=== PATIENT | female | born 1975 | race Caucasian/White ===

== ENCOUNTER 2024-12-23 14:49 | Inpatient (IN) | payer MEDICAID, SELFPAY ==
--- OUTSIDE RECORDS SUMMARY | 2024-12-23 14:57 | XMS_ITS | Clinical Summary ---
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
[2024-12-23 15:42] VITALS: BMI 19.8
[2024-12-23 16:03] VITALS: BP 122/73; PULSE 80; RESP 16; TEMP 36.1; O2SAT 100
--- NOTE | 2024-12-23 17:04 | PC.ADMIT ---
Pt is a 49 year old female who arrived to on a CV at 15:30 from a hospital in the [facility] for the treatment of depression and SI. Per crisis report pt recently attempted suicide - pt stating she is here now not specifying if she's regretful or not. States she feels safe on the unit. Pt has attempted ~10 times to end her life since a young age. Precipitants of her depression include a divorce ~1 year ago. Ever since the divorce pt has only been sleeping 4 hours daily. She denies current SI/HI/AH/VH. She states she has been with a low this since she was 13. Pt is reporting 4/10 for depression and 5/10 for anxiety. Utox (+) for cocaine and cocaine use reported on crisis report from the other hospital however pt denied all substance use to t/w. Pt very guarded upon arrival to the unit, tearful at times, stated I've never been to a place like this before. I haven't even been to the hospital in 20 years. I'm healthy. I don't take any medications. Skin check completed with no significant findings.
--- NOTE | 2024-12-23 19:52 | HO.PM.IMCN ---
History of Present Illness Data of Consult Service Date: 12/23/24 Requesting physician: Mimi Castelan Primary Care Provider: None Physician HPI Reason for consult: admission HPI Patient is a 49-year-old female with past medical history depression, multiple suicide attempts, insomnia, substance use disorder, tobacco dependence, dental extractions, inguinal hernia repair at 6 months of age is being seen on M5 status post admission for suicidal ideations to review medical needs. Psychiatric provider present for interview. Patient states she has no current medical concerns at this time. Patient denies history of diabetes, hypertension, HIV or hepatitis. Patient denies any known liver problems related to her alcohol use. Patient states she has been under a current weight since 9th grade. Patient's past medical and surgical history reviewed with patient and exam completed. Patient cooperative with care. Review of Systems Review of Systems: Patient denies any chest pain, shortness of breath at rest or with exertion, nausea or vomiting. Patient is not having issues with constipation or diarrhea. Patient sleeps 4-5 hours per night. Patient denies any recent falls or traumas. Patient denies history of IV drug abuse but has history of cocaine use. Patient's smokes about a pack per day. Patient does drink alcohol 3-4 winds every other day. Patient denies history of withdrawal. Yes all other systems are reviewed and are negative PMFSH Medical History Insomnia Alcohol use Substance use disorder Tobacco dependence Cognitive capacity: Alert and orientated x3 Functional capacity: independent ambulation Surgical History [place] teeth extracted H/O inguinal hernia repair Social History Household Members: None Do you presently have visiting nurse or other home services: No Patient Tobacco Use Status: Current everyday Tobacco user Tobacco use type: Cigarette Smoked in Last 30 Days: Yes e-Cigarette/Vaping Use: Never Used Patient Interested in Nicotine Replacement: No Patient Given Instructions on How to Stop Smoking: No (pt declined) Second Hand Smoke Exposure: No Currently Displaying Signs/Symptoms of Drug Intoxication Withdrawal: No Have you been hit, kicked, punched, or otherwise hurt by someone within the past year? If so, by whom?: No Do you feel safe in your current relationship?: No Is there a partner from a previous relationship who is making you feel unsafe now?: No Are you made to feel afraid or neglected: No Spiritual Healthcare Practices: none Pentecostal Healthcare Practices: none Cultural Healthcare Practices: none Advance Directives: No Advance Directives Information Provided: Yes Do you have thoughts of harming others: None Do you have a plan to hurt others: No Plan Recently lost weight without trying: No How much weight loss: Not applicable Eating poorly because of decreased appetite: No Nutrition screen score: 0 Nutrition Risks: No Nutritional Risk Patient : No : No Poor oral hygiene: No Ebola Risk: Travel/Contact With Anyone From Affected Area/s: No Has Patient Experienced Ebola Symptoms: No Meds Allergies Allergy/AdvReac Type Severity Reaction Status Date / Time No Known Allergies Allergy Verified 12/23/24 15:41 Active Medications: Current Medications Acetaminophen (Acetaminophen 325 Mg Tablet) 650 mg PO Q6H PRN PRN Reason: Headache/Pain, Scale 1-10 Al Hydroxide/Mg Hydroxide (Magnesium Hydrox/Alum Hydrox 30 Ml Oral.Susp) 30 ml PO Q6H PRN PRN Reason: Heartburn/Nausea Hydroxyzine HCl (Hydroxyzine Hcl 25 Mg Tablet) 25 mg PO Q6H PRN PRN Reason: mild anxiety Magnesium Hydroxide (Milk Of Magnesia 30 Ml Oral.Susp) 30 ml PO DAILY PRN PRN Reason: Constipation Melatonin (Melatonin 3 Mg Tablet) 6 mg PO BEDTIME NICHOLAS Nicotine (Nicotine 21 Mg Patch.Td24) 21 mg TRANSDERMA DAILY PRN PRN Reason: nicotine craving Nicotine Polacrilex (Nicotine Polacrilex 2 Mg Gum) 2 mg BUCCAL Q2H PRN PRN Reason: Nicotine Cravings Olanzapine (Olanzapine 5 Mg Tablet) 5 mg PO BID PRN PRN Reason: agitation Trazodone HCl (Trazodone Hcl 50 Mg Tablet) 50 mg PO BEDTIME MRX1 PRN PRN Reason: Insomnia Physical Exam Vital Signs and Narrative: Vital Signs: Last Vital Signs Temp 96.9 F 12/23/24 16:03 Pulse 80 12/23/24 16:03 Resp 16 12/23/24 16:03 BP 122/73 12/23/24 16:03 Pulse Ox 100 12/23/24 16:03 O2 Del Method Room Air 12/23/24 16:03 BMI result Body Mass Index 19.8 Alert and orientated X3, able to give good history. Neuro: CN II-X11 intact, no deficits, visual acuity intact EYES: PERRLA, EOM intact, sclerae nonicteric, conjunctiva pink ENT: hearing intact, no issues with swallowing, uvula midline, lips moist, nares patent no epistaxis, no current issues with dental caries or abscess Cardiac: S1 S2 RRR, no murmur, no JVD, no edema in Lower ext Pulmonary: lungs clear to auscultation B Abdominal: BS active in all 4 quadrants, no guarding, tenderness, rebounding MSK: strength 5/5 upper and lower extremities : no CVA tenderness no bladder distension Extremities: no edema in lower extremities, PT and DP pulses palpable +2 Psych: mood stable, judgement and insight good Skin: Intact, no rashes or lesions noted Results ECG Prior ECG tracings: not available for review Assessment and Plan (1) Tobacco dependence: Status: Acute Plan Patient is a 49-year-old female with past medical history depression, multiple suicide attempts, insomnia, substance use disorder, tobacco dependence, dental extractions, inguinal hernia repair at 6 months of age is being seen on in 5 status post admission for suicidal ideations to review medical needs. Patient states she has no current medical concerns at this time. Patient denies history of diabetes, hypertension, HIV or hepatitis. Patient denies any known liver problems related to her alcohol use. Patient states she has been in her current weight since 9th grade. Tobacco dependence Nicotine patch and nicotine gum ordered by Psychiatry Alcohol use disorder No issues with withdrawal in the past Do not suspect need for CIWA or withdrawal issues Insomnia Management per Psychiatry Patient offers no specific medical concerns at this time. Hospitalist group will sign off. Thank you for this consultation. Please reach out with any questions or concerns.
[2024-12-23 20:00] VITALS: BP 144/75; PULSE 60; RESP 16; TEMP 36.1; O2SAT 100
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
--- NOTE | 2024-12-24 00:39 | PC.NURSE ---
Pt refused HS Melatonin 6mg at 2100. She later requested Melatonin 9mg and Trazodone 50mg for insomnia @ 0030. She states I can't sleep .
[2024-12-24 08:00] VITALS: BP 114/55; PULSE 60; RESP 16; TEMP 35.6; O2SAT 99
[2024-12-24 09:07] LABS: Alanine Aminotransferase 22 U/L (0-31); Albumin Level 4.4 g/dL (3.5-5.0); Alkaline Phosphatase 66 U/L (39-117); Anion Gap 12 (12-20); Aspartate Amino Transferase 26 U/L (5-31); Blood Urea Nitrogen 8 mg/dL (9-16); Calcium 9.5 mg/dL (8.4-10.2); Carbon Dioxide 29 mmol/L (22-29); Chloride 104 mmol/L (96-108); Cholesterol 184 mg/dL (<200); Creatinine Clr Calc Pharmacy 69.2; Estimated Glomerular Filt Rate > 60; HDL Cholesterol 71 mg/dL (>40); Potassium 4.2 mmol/L (3.3-5.1); Sodium 141 mmol/L (135-145); Total Protein 6.9 g/dL (6.5-8.0); Triglycerides 121 mg/dL (<150)
[2024-12-24 09:11] LABS: Hemoglobin A1C 117.5642 umol/L; Total Hemoglobin (HGBA1C) 3945.5502 umol/L
[2024-12-24 09:56] LABS: Free T4 (Free Thyroxine) 0.81 ng/dL (0.71-1.85); Thyroid Stimulating Hormone 2.49 uIU/mL (0.32-4.0)
[2024-12-24] MEDS: Carbamide Peroxide 6.5% Otic 15 ML DRPBTL 5 DROP EAR-LEFT (12:44)
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
[2024-12-24 20:00] VITALS: BP 120/61; PULSE 68; RESP 16; TEMP 36.4; O2SAT 99
[2024-12-25 08:00] VITALS: BP 130/70; PULSE 61; RESP 16; TEMP 36.1; O2SAT 98
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
[2024-12-25 19:45] VITALS: BP 119/67; PULSE 65; RESP 16; TEMP 35.6; O2SAT 100
[2024-12-26 07:57] VITALS: BP 132/58; PULSE 108; TEMP 36.2; O2SAT 100
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
[2024-12-26 20:00] VITALS: BP 139/72; PULSE 68; RESP 16; TEMP 35.9; O2SAT 99
[2024-12-27 08:00] VITALS: BP 124/55; PULSE 57; RESP 16; TEMP 35.7; O2SAT 98
--- NOTE | 2024-12-27 09:48 | HO.PM.IMPN ---
Subjective Subjective Date of Service: 12/27/24 Interval History: Patient is reporting decreased hearing in left ear. Patient had her ears flushed two days ago after debrox treatment. Still reports her ear feels blocked. No fever, vitals are stable. No pain in ear, no drainage. No pain in pinna or tragus. Patient denies inserting anything into her ear. Reports that she cleans her ears but does not place anything inside including Qtips Review of Systems Denies any shortness of breath, chest pain, dizziness, lightheadedness, abdominal pain or discomfort, nausea vomiting or diarrhea Physical Exam Exam: Exam: CONST: Alert and oriented, in NAD. Well nourished HEENT: Normocephalic, atraumatic, MMM, Eyes clear, Neck supple. Left eardrum not visible due to impacted wax. No redness or drainage noted RESP: Lungs clear, RRR even and regular HEART:,RRR, S1, S2. No edema GI:Abdomen Soft NT, ND. + BS times four :Deferred SKIN: Warm dry and intact, no visible lesions or rashes NEURO:CN II-XII Intact bilaterally, Sensation intact. Speech clear PSYCH: Normal affect Vital Signs: Vital Signs: Last Vital Signs Temp 96.2 F L 12/27/24 08:00 Pulse 57 12/27/24 08:00 Resp 16 12/27/24 08:00 BP 124/55 L 12/27/24 08:00 Pulse Ox 98 12/27/24 08:00 O2 Del Method Room Air 12/26/24 20:00 BMI result Body Mass Index 19.8 Objective Data Active Medications Acetaminophen (Acetaminophen 325 Mg Tablet) 650 mg PO Q6H PRN PRN Reason: Headache/Pain, Scale 1-10 Al Hydroxide/Mg Hydroxide (Magnesium Hydrox/Alum Hydrox 30 Ml Oral.Susp) 30 ml PO Q6H PRN PRN Reason: Heartburn/Nausea Escitalopram Oxalate (Escitalopram Oxalate 10 Mg Tablet) 10 mg PO DAILY [facility] Last Admin: 12/27/24 09:44 Dose: 10 mg Documented By: NICOLIM Hydroxyzine HCl (Hydroxyzine Hcl 25 Mg Tablet) 25 mg PO Q6H PRN PRN Reason: mild anxiety Magnesium Hydroxide (Milk Of Magnesia 30 Ml Oral.Susp) 30 ml PO DAILY PRN PRN Reason: Constipation Melatonin (Melatonin 3 Mg Tablet) 6 mg PO BEDTIME [facility] Last Admin: 12/26/24 22:45 Dose: 6 mg Documented By: MICHAEL Nicotine (Nicotine 21 Mg Patch.Td24) 21 mg TRANSDERMA DAILY PRN PRN Reason: nicotine craving Nicotine Polacrilex (Nicotine Polacrilex 2 Mg Gum) 2 mg BUCCAL Q2H PRN PRN Reason: Nicotine Cravings Olanzapine (Olanzapine 5 Mg Tablet) 5 mg PO BID PRN PRN Reason: agitation Last Admin: 12/26/24 23:48 Dose: 5 mg Documented By: MICHAEL Trazodone HCl (Trazodone Hcl 50 Mg Tablet) 50 mg PO BEDTIME MRX1 PRN PRN Reason: Insomnia Last Admin: 12/25/24 21:03 Dose: 50 mg Documented By: MICHAEL Labs 12/24/24 08:15 Assessment and Plan (1) Cerumen impaction: Status: Acute Plan Patient is a 49-year-old female with past medical history depression, multiple suicide attempts, insomnia, substance use disorder, tobacco dependence, dental extractions, inguinal hernia repair at 6 months of age is being seen on M5 status post admission for suicidal ideations. Cerumen impaction SP ear Debrox and flushing two days ago. Still with ear wax obscuring eardrum Will need outpatient audiology. Tobacco dependence Nicotine patch and nicotine gum ordered by Psychiatry Alcohol use disorder/Insomnia/Depression/DI Treatment per psych team. Quality Stroke Does the patient have a stroke diagnosis?: No VTE Prior VTE?: No VTE Risk Level:: Medical - low VTE Device Contraindication: Treatment Not Indicated VTE Drug Contraindication: Treatment Not Indicated
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
--- NOTE | 2024-12-27 13:16 | MHC.AUDCO ---
Attended patient on the floor at request of Katia Dow who shared that Tawnya had been getting debrox drops in her left ear due to a full occlusion of cerumen. Upon otoscopic examination, I confirmed the total occlusion. At this time drops should continue 2x/day. Keeping them in the left ear for @10-15 at a time to continue to soften the wax. A curette may be used to remove the wax with sufficient softening. Another solution to use would be hydrogen peroxide. I will return to the floor tomorrow with a curette to see if I can remove some of the wax at that time. Suction is also an option if Tawnya will tolerate it. Mason Fortune.
[2024-12-27 19:31] VITALS: BP 129/68; PULSE 67; RESP 16; TEMP 36.3; O2SAT 100
[2024-12-27] MEDS: traZODone HCL 25 MG HALFTAB 75 MG PO (22:24)
[2024-12-27] MEDS: Carbamide Peroxide 6.5% Otic 15 ML DRPBTL 5 DROP EAR-BOTH (22:25)
[2024-12-28] MEDS: Carbamide Peroxide 6.5% Otic 15 ML DRPBTL 5 DROP EAR-BOTH ×2 (07:53→22:23)
[2024-12-28 07:59] VITALS: BP 128/64; PULSE 63; RESP 16; TEMP 35.6; O2SAT 100
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
--- NOTE | 2024-12-28 11:33 | MHC.AUDCO ---
Attended patient on the floor to follow up on occluding cerumen left ear following continued use of wax softening ear drops as recommended by Jael Mccray With the use of headlamp and lighted curette, significant cerumen removed from left ear canal without complication. All soft cerumen was removed and a harder wall of visually occluding cerumen remained deep in canal, which could not be removed with curette at this time. Tawnya tolerated the procedure well. Discussed continued use of wax softening drops with Tawnya and the attending nurse to soften the remaining cerumen. Advised that an procurement intern will return tomorrow morning, 12/29, to check on the occlusion and attempt to remove any remaining softened cerumen. Mason Prieto., [facility]
[2024-12-28 17:14] VITALS: BP 152/80
[2024-12-28 20:00] VITALS: BP 92/53; PULSE 59; TEMP 36.2; O2SAT 100
[2024-12-28] MEDS: traZODone HCL 25 MG HALFTAB 75 MG PO ×2 (22:21→23:39)
[2024-12-28 22:25] VITALS: BP 127/60; PULSE 65; TEMP 36; O2SAT 98
[2024-12-29 08:00] VITALS: BP 109/61; PULSE 68; RESP 16; TEMP 36.1; O2SAT 99
[2024-12-29] MEDS: Carbamide Peroxide 6.5% Otic 15 ML DRPBTL 5 DROP EAR-BOTH (08:32)
--- NOTE | 2024-12-29 08:33 | MHC.AUDCO ---
Attended patient on the floor to follow up on occluding cerumen, left ear, after use of more wax softening drops. Reattempted cerumen removal with the use of a lighted curette. Although some cerumen was removed from left ear canal without complication, a wall of visually occluding, hard cerumen still remains deep in canal, which could still not be removed with curette. Tawnya reported she is getting discharged today. Recommended continuing the use of wax softening drops and following up with PCP to complete cerumen removal.
[2024-12-29 11:21] VITALS: BP 122/76
--- NOTE | 2025-01-23 17:05 | PM.PSYDC ---
DS: Providers Provider Date of Service: 12/29/24 Date of admission: 12/23/24 14:49 Date of discharge: 12/29/24 Primary care physician: Jeffrey Physician Admitting clinician: Mimi Castelan Attending physician on admission: Ananda Sebastian Consults: 12/23/24 17:12 Consult to Hospitalist Routine Comment: Consulting Provider: [facility] Hospital[facility] Reason For Exam: New external admit- H&P 12/26/24 15:28 Consult to Hospitalist Routine Comment: Consulting Provider: [facility] Reason For Exam: L Ear-unable to hear, debrox ineffective, ?debris Attending physician on discharge: Ananda Sebastian Discharging clinician: Katia Dow DS: Diagnosis Discharge Diagnosis (1) Alcohol use: Status: Acute (2) Insomnia: Status: Resolved (3) Anxiety and depression: Status: Acute (4) Cocaine use disorder: Status: Acute DS: Medications Discharge Medications Home Medications: Previous Rx's ?Medication ?Instructions ?Recorded escitalopram oxalate 10 mg tablet 10 mg PO DAILY #30 tabs 12/28/24 clonidine HCl 0.1 mg tablet 0.1 mg PO BID PRN anxiety #60 tabs 12/29/24 trazodone 100 mg tablet 100 mg PO BEDTIME PRN sleep #30 12/29/24 tabs Mental Status Exam Mental Status Exam Patient Appearance: Appropriate Patient Orientation: Person, Place, Time and Situation Level of Consciousness: Alert Patient Behavior: Talkative and Good Eye Contact Mood Description: Apprehensive Affect Description: Apprehensive Patient Cognition Impaired: No Ability to Follow Directions: Good Speech Pattern: Spontaneous Speech Memory Description: Intact Hallucinations: None Delusions: Not Present Thought Process: Rumination Thought Content: positive for Circumstantial, positive for Perseveration and positive for Suicidal Ideation (denies) Depressive Symptoms: Thoughts of /Suicide (denies) Judgement: Good DS: Summary Hospital Course Hospital Course: Admission to adult psychiatry for exacerbation of recurrent major depression, SI, alcohol and cocaine use disorder. Recent SA and SIBS and a long history of chronic SI pt reports. Medications were evaluated and adjusted. Pt was offered full milieu to strengthen coping skills. Pt will return to out pt therapist and PHP upon discharge Status at Discharge Functional status at discharge: independent ambulation Overall status at discharge: patient is progressing back to baseline Time Spent with Patient Time attestation: Total time managing care of this patient today ____ minutes. Time spent: Less than 30 minutes Discharge Plan Discharge Anticipated Discharge Date/Time: 12/29/24 12:00 Patient Disposition: Home, Self-Care Discharge Diagnosis: Major Depression Alcohol Abuse Cocaine Abuse Referrals: Taylor Ca (OP therapist/Intake) [Other] - 12/30/24 11:00 am Referral Note: [facility] Approximately 1 hr and 30 minute appointment *You will receive a link via email the day of this appointment *You qualify for medication management with in 30 days. Partial Hospital Program [Other] - 01/02/25 9:30 am Referral Note: In-Person Appointments Physician,None [Primary Care Provider, Medical] - 1 Week Discharge Medications: New escitalopram oxalate 10 mg Tablet 10 mg PO DAILY Qty: 30 0RF clonidine HCl 0.1 mg Tablet 0.1 mg PO BID PRN (Reason: anxiety) Qty: 60 0RF Protocol: Hold for SBP< HOLD for SBP < : 90 trazodone 100 mg tablet 100 mg PO BEDTIME PRN (Reason: sleep) Qty: 30 0RF Discharge Orders: Discharge Order (Routine); Ordered 12/29/24 Ordered By: Katia Dow Diet: Advance to usual diet Activity on Discharge: As tolerated Stand Alone Forms: Patient Portal Discharge page Print Language: Czech Care Plan Goals: Mood and Behavioral Stabilization Abstinence from Substances Health Concerns: Mood and Behavioral Stabilization Abstinence from Substances Plan of Treatment: Attend scheduled appointments Take medications as directed Assessment: Pt agrees with plan of care. No SI,HI,AH, VH. No sx of acute psychosis or enedelia Discharge Date/Time: 12/29/24 11:35
== END 2024-12-29 11:35 | disposition home or self-care (01) | DRG 756 ==
PROVIDERS: Nurse Practitioner Psychiatric/Mental Health; Admitting Provider Psychiatry & Neurology Psychiatry; Visit Provider Clinical Nurse Specialist Psychiatric/Mental Health, Adult
DX: F41.9 Anxiety disorder, unspecified (principal); F10.90 Alcohol use, unspecified, uncomplicated; F17.210 Nicotine dependence, cigarettes, uncomplicated; Z71.6 Tobacco abuse counseling; G47.00 Insomnia, unspecified; F14.10 Cocaine abuse, uncomplicated; Z91.51 Personal history of suicidal behavior; Z79.899 Other long term (current) drug therapy
CPT/HCPCS: 36415; 80053; 80061; 83036; 84439; 84443

== ENCOUNTER → 2024-12-23 14:49 | Outpatient (BNV) | payer MEDICAID, SELFPAY | PROVIDERS: Admitting Provider Psychiatry & Neurology Psychiatry; Visit Provider Nurse Practitioner Family | DX: F17.200 Nicotine dependence, unspecified, uncomplicated (principal) | CPT/HCPCS: 99222 ==

== ENCOUNTER → 2024-12-23 14:49 | Outpatient (BNV) | payer MEDICAID, SELFPAY | PROVIDERS: Admitting Provider Psychiatry & Neurology Psychiatry; Visit Provider Psychiatry & Neurology Psychiatry | DX: F10.90 Alcohol use, unspecified, uncomplicated (principal); G47.00 Insomnia, unspecified; F41.9 Anxiety disorder, unspecified; F32.A Depression, unspecified; F14.10 Cocaine abuse, uncomplicated | CPT/HCPCS: 99231; 99232 ==